=== PATIENT | female | born 1945 | race Caucasian/White ===

== ENCOUNTER 2023-09-13 12:37 | Emergency (ER) | payer MEDICARE, OTHER ==
[~2023-09-13] VITALS: Ht 160 cm; Wt 72.6 kg
[2023-09-13] MEDS ORDERED: CYCL5TAB PO (17:00)
[2023-09-13 17:16] VITALS: BP 133/73; TEMP 97.8; O2SAT 99
== END 2023-09-13 17:16 | disposition home or self-care (01) ==
LOC: ER 12:37
DX: S32.018A Other fracture of first lumbar vertebra, initial encounter for closed fracture (principal); M54.42 Lumbago with sciatica, left side; Z79.899 Other long term (current) drug therapy; X58.XXXA Exposure to other specified factors, initial encounter; Y93.89 Activity, other specified; Y92.89 Other specified places as the place of occurrence of the external cause; Y99.8 Other external cause status
CPT/HCPCS: 72131-TC; 73502; 73560-TC; 73610-TC